=== PATIENT | female | born 1995 | race American Indian/Alaskan Native ===

== ENCOUNTER 2018-10-22 12:05 | Inpatient (IN) | payer MEDICAID ==
[2018-10-22] MEDS ORDERED: AMBIEN PO PRN ×2 (15:24→21:42)
[2018-10-22] MEDS ORDERED: SODIUM CHLORIDE FLUSH SYRINGE 10 ML IV PRN (15:24)
[2018-10-22] MEDS ORDERED: COLACE PO PRN (15:24)
[2018-10-22] MEDS ORDERED: TYLENOL PO PRN (15:24)
--- NOTE | 2018-10-22 16:25 | History and Physical Report ---
History of Present Illness Date of examination: 10/22/18 Date of admission: 10/22/18 15:27 Chief complaint: at 18 weeks with elevated BP History of present illness: Patient is a 23 year old , LMP 06/18/18, EDC 03/25/19 at 18 weeks gestation who was sent from the office for admission for elevated BP. She has a history of chronic HTN for over 5 years and has not been on any anti-HTN meds until recently. She went to the ER at [facility] earlier in this on 08/19/18 for elevated BP of 163/110. As per the ER records, patient was prescribed medication for her HTN but she "chose not to take them". She is a patient of [facility]. She was seen in the office today and her BP was 163/110, repeat was 154/112. She was sent for admission for BP control. She denies any headache or visual disturbances. Past History Social history: no significant social history - Obstetrical History Expected Date of Delivery: 03/25/19 Actual Gestation: 18 Week(s) 0 Day(s) : 2 Spontaneous Abortions: 1 Medications and Allergies Allergies Allergy/AdvReac Type Severity Reaction Status Date / Time Penicillins AdvReac Unknown Unverified 10/22/18 14:30 Active Meds: Active Medications Acetaminophen (Tylenol) 650 mg PO Q4H PRN PRN Reason: Pain MILD(1-3)/Fever >100.5/GOODEN Docusate Sodium (Colace) 100 mg PO Q12H PRN PRN Reason: Constipation Hydralazine HCl (Apresoline) 5 mg IV Q30MIN PRN PRN Reason: Hypertension Labetalol HCl (Normodyne) 300 mg PO BID MELISSA Multivitamins/Iron/Calcium ( Vitamin) 1 each PO QDAY MELISSA Sodium Chloride (Sodium Chloride Flush Syringe 10 Ml) 10 ml IV PRN PRN PRN Reason: LINE FLUSH Zolpidem Tartrate (Ambien) 5 mg PO QHS PRN PRN Reason: Sleep - Physical Exam Cardiovascular: Normal S1, Normal S2 Lungs: Positive: Clear to auscultation Vulva: both: normal Adnexa: both: normal - Obstetrical Uterine Contraction Pattern: Absent Results All other labs normal. Assessment and Plan - Patient Problems (1) 18 weeks gestation of Current Visit: Yes Status: Acute (2) HTN (hypertension) Current Visit: Yes Status: Acute Plan to address problem: Admit to antepartum floor. IV hydralazine for DBP>100. Labetolol 300 mg PO BID. CBC, chemistry. 24-hr urine for protein and Cr clearance. OB sonogram.
[2018-10-22] MEDS: APRESOLINE IV PRN (16:52)
[2018-10-22] MEDS: NORMODYNE PO SCH ×2 (16:53→21:29)
[2018-10-22] MEDS: PRENATAL VITAMIN PO SCH (16:53)
[2018-10-22] MEDS ORDERED: NORMODYNE IV ONE (17:32)
[2018-10-22] MEDS: ZOFRAN IV PRN (17:50)
[2018-10-22 18:04] LABS: Basophils # (Auto) 0.1 K/mm3 (0.0-0.1); Basophils % (Auto) 0.6 % (0.0-1.8); Eosinophils # (Auto) 0.1 K/mm3 (0.0-0.4); Eosinophils % (Auto) 0.9 % (0.0-4.3); Hematocrit 32.5 % (30.3-42.9); Hemoglobin 11.2 gm/dl (10.1-14.3); Lymphocytes # (Auto) 2.2 K/mm3 (1.2-5.4); Lymphocytes % (Auto) 24.8 % (13.4-35.0); Mean Corpuscular HGB Conc 34 % (30-34); Mean Corpuscular Volume 82 fl (79-97); Monocytes # (Auto) 0.5 K/mm3 (0.0-0.8); Monocytes % (Auto) 5.8 % (0.0-7.3); Platelet Count 187 K/mm3 (140-440); Red Blood Count 3.97 M/mm3 (3.65-5.03); Red Cell Distribution Width 17.5 % (13.2-15.2)
[2018-10-22 18:20] LABS: Alanine Aminotransferase 9 units/L (7-56); Albumin 3.6 g/dL (3.9-5); BUN/Creatinine Ratio 11; Blood Urea Nitrogen 8 mg/dL (7-17); Calcium 9.3 mg/dL (8.4-10.2); Hemolysis Index 10
[2018-10-23] MEDS: APRESOLINE IV PRN (06:52)
[2018-10-23] MEDS: ZOFRAN IV PRN (07:53)
[2018-10-23] MEDS: PRENATAL VITAMIN PO SCH (10:10)
[2018-10-23] MEDS ORDERED: NORMODYNE IV ONE ×2 (10:11→12:12)
[2018-10-23] MEDS: NORMODYNE PO SCH ×2 (10:11→21:01)
[2018-10-23] MEDS: NORVASC PO SCH (10:12)
--- NOTE | 2018-10-23 10:44 | Event Note ---
Date: 10/23/18 Patient was admitted yesterday evening for elevated BP. She has a long history of CHTN and did not start taking meds until after she became and had to go to the ER 2 months ago for symptomatic HTN. She has been on labetolol 300 mg BID. She says that she has been taking it as prescribed. On admission, her BP was in the 170's/100's. IV hydralazine was given without much improvement. IV labetolol 20 mg was ordered for diastolic BP>100. During the night, she has many diastolic reading in the 100-110's range but her nurse did not contact me. I checked the BP on [facility] at around 1 AM and BP was 150's/90's. I ordered norvasc 10 mg to be added to her standing labetolol orders. That was not given to the patient. She continued to have elevated diastolic>100 and still no doctor was made aware. I discovered the continued abnormal BP pattern this AM. Current nurse was made aware that I or any doctor media liaison officer must be contacted for any BP>160/100. At that time, BP was 184/199. Labetolol 20 mg IV push was given. After 25 minutes, BP was 177/106. Second dose of labetolol 40 mg IV was ordered. Will get medical consult today. Will continue labetolol 300 mg PO BID and norvasc 10 mg PO QD. heart by doppler Qshift.
--- NOTE | 2018-10-23 15:50 | Event Note ---
Date: 10/23/18 Patient's BP is still uncontrolled despite being on labetolol 300 mg PO BID, norvasc 10 mg PO QD. She was given several doses of IV labetolol since this AM. I spoke with hospitalist Dr. Sherwood at 3:38 PM and asked him to consult on this patient due to uncontrolled BP.
--- NOTE | 2018-10-24 06:44 | Consultation ---
History of Present Illness - Reason for Consult Consult date: 10/23/18 Requesting physician: EVELINA GUERRERO - History of Present Illness 23 YO Female with MO, HTN, Medication Noncompliance at 18 weeks gestation. Consult placed by Dr. Guerrero for Uncontrolled HTN. Pt seen and evaluated in her room. Pt acknowledges medication noncompliance with known diagnosis of HTN at age 18. Pt denies fever, chills, CP, Palpitations, Vision changes, vertigo, dizziness, NVD, Seizure, Trauma, or recent ill contacts. No reported nursing events. Pt counseled regarding medication noncompliance. Past History Past Medical History: hypertension, other (obesity) Past Surgical History: No surgical history Social history: no significant social history Family history: hypertension Medications and Allergies Allergies Allergy/AdvReac Type Severity Reaction Status Date / Time Penicillins AdvReac Unknown Unverified 10/22/18 14:30 Active Meds: Active Medications Acetaminophen (Tylenol) 650 mg PO Q4H PRN PRN Reason: Pain MILD(1-3)/Fever >100.5/GOODEN Amlodipine Besylate (Norvasc) 10 mg PO QDAY [facility] Last Admin: 10/23/18 10:12 Dose: 10 mg Documented by: Docusate Sodium (Colace) 100 mg PO Q12H PRN PRN Reason: Constipation Hydralazine HCl (Apresoline) 5 mg IV Q30MIN PRN PRN Reason: Hypertension Last Admin: 10/23/18 06:52 Dose: 5 mg Documented by: Labetalol HCl (Normodyne) 400 mg PO BID [facility] Last Admin: 10/23/18 21:01 Dose: 400 mg Documented by: Multivitamins/Iron/Calcium ( Vitamin) 1 each PO QDAY [facility] Last Admin: 10/23/18 10:10 Dose: 1 each Documented by: Ondansetron HCl (Zofran) 4 mg IV Q8H PRN PRN Reason: Nausea And Vomiting Last Admin: 10/23/18 07:53 Dose: 4 mg Documented by: Sodium Chloride (Sodium Chloride Flush Syringe 10 Ml) 10 ml IV PRN PRN PRN Reason: LINE FLUSH Zolpidem Tartrate (Ambien) 5 mg PO QHS PRN PRN Reason: Sleep Last Admin: 10/22/18 21:51 Dose: 5 mg Documented by: Review of Systems Constitutional: no weight loss, no fever, no chills Ears, nose, mouth and throat: no ear pain, no tinnitis, no nose pain, no sinus pressure Cardiovascular: no chest pain, no palpitations, no edema, no lightheadedness Respiratory: no cough, no excessive sputum, no pleurisy Gastrointestinal: no nausea, no diarrhea, no change in bowel habits Genitourinary Female: no dysmenorrhea, no flank pain, no dysuria Menstruation: no premenarcheal, no ammenorrhea, no period normal Rectal: no pain, no incontinence, no bleeding Musculoskeletal: no neck stiffness, no shooting arm pain, no low back pain, no leg numbness/tingling Integumentary: no rash, no redness, no jaundice Neurological: no head injury, no paralysis, no parathesias, no seizures Psychiatric: no anxiety, no sleep disturbances, no hypersomnia Endocrine: no cold intolerance, no polyphagia, no polydipsia, no nocturia Hematologic/Lymphatic: no easy bruising, no easy bleeding Allergic/Immunologic: no urticaria, no allergic rhinitis, no wheezing Exam - Constitutional Vitals: Temp Pulse Resp BP Pulse Ox 98.4 F 81 20 154/96 100 10/24/18 04:10 10/24/18 04:10 10/24/18 04:10 10/24/18 04:10 10/23/18 15:28 General appearance: Present: no acute distress, obese - EENT Eyes: Present: PERRL ENT: hearing intact, clear oral mucosa - Neck Neck: Present: supple, normal ROM - Respiratory Respiratory effort: normal Respiratory: bilateral: CTA - Cardiovascular Heart Sounds: Present: S1 & S2. Absent: rub, click - Extremities Extremities: pulses symmetrical, No edema Peripheral Pulses: within normal limits - Abdominal General gastrointestinal: Present: soft, non-tender, non-distended, normal bowel sounds Female genitourinary: Present: normal - Integumentary Integumentary: Present: clear, warm, dry - Musculoskeletal Musculoskeletal: gait normal, strength equal bilaterally - Psychiatric Psychiatric: appropriate mood/affect, intact judgment & insight - Neurologic Neurologic: CNII-XII intact, moves all extremities Results - Labs CBC & Chem 7: 10/22/18 17:47 10/22/18 17:47 Labs: Abnormal lab results 10/22/18 Range/Units 16:19 Ur Total Protein 24 Hr 440.00 H (2-200) mg/dL Urine Total Protein 40 H (5-11.8) mg/dL Assessment and Plan - Patient Problems (1) HTN (hypertension) Current Visit: Yes Status: Acute Qualifiers: Hypertension type: essential hypertension Qualified Code(s): I10 - Essential (primary) hypertension Plan to address problem: Monitor bp q shift, continue current therapy, maintain blood pressure log BID upon discharge,
[2018-10-24] MEDS: PRENATAL VITAMIN PO SCH (09:53)
[2018-10-24] MEDS: NORMODYNE PO SCH (09:53)
[2018-10-24] MEDS: NORVASC PO SCH (09:54)
--- NOTE | 2018-10-24 11:55 | Progress Note ---
Assessment and Plan Assessment and plan: 23 YO Female with MO, HTN, Medication Noncompliance at 18 weeks gestation. Consult placed by Dr. Morrissey for Uncontrolled HTN. Pt seen and evaluated in her room. Pt acknowledges medication noncompliance with known diagnosis of HTN at age 18. Pt denies fever, chills, CP, Palpitations, Vision changes, vertigo, dizziness, NVD, Seizure, Trauma, or recent ill contacts. No reported nursing events. Pt counseled regarding medication noncompliance. Hypertension -Continue current management with labetalol which has been adjusted to 400 mg by mouth twice a day - Continue Norvasc - While at home his blood pressures increased recommend the labatelol could be adjusted to 300 mg 3 times a day -Patient is medically stable from hospitalist standpoint for discharge. I've advised patient to keep a diary of blood pressure 3 times a day for the next week and then twice a day the week after that. Discussed this with her primary care physician and her PROPERTY MANAGEMENT INTERN. Will follow with you while in house Counselling provided to the patient including the gradual managmenet approach that was adopted. she verbalized understanding. 15MINS IUP -Management per PROPERTY MANAGEMENT INTERN. History Interval history: Patient is seen today for: Hypertension patient is 18 weeks . Seen and examined at bedside; 24hour events reviewed; nursing staff ; no adverse overnight events reported to me; Denies any chest pain, nausea, vomiting, diarrhea No fever noted blood pressure controlled Hospitalist Physical - Physical exam Narrative exam: VITAL SIGNS: Reviewed. GENERAL: The patient appeared well nourished and normally developed. Vital signs as documented. HEAD: No signs of head trauma. EYES: Pupils are equal. Extraocular motions intact. EARS: Hearing grossly intact. MOUTH: Oropharynx is normal. NECK: No adenopathy, no JVD. CHEST: Chest with clear breath sounds bilaterally. No wheezes, rales, or r honchi. CARDIAC: Regular rate and rhythm. S1 and S2, without murmurs, gallops, or r ubs. VASCULAR: No Edema. Peripheral pulses normal and equal in all extremities. ABDOMEN: Soft, without detectable tenderness. Gravidus No rebound or guarding, and no masses palpated. Bowel Sounds normal. MUSCULOSKELETAL: Good range of motion of all major joints. Extremities without clubbing, cyanosis or edema. NEUROLOGIC EXAM: Alert and oriented x 3. No focal sensory or strength deficits. Speech normal. Follows commands. PSYCHIATRIC: Mood normal. SKIN: No rash or lesions. - Constitutional Vitals: Temp Pulse Resp BP Pulse Ox 97.9 F 77 20 154/97 100 10/24/18 08:46 10/24/18 09:54 10/24/18 08:46 10/24/18 09:54 10/24/18 08:46 General appearance: Present: no acute distress, obese Results - Labs CBC & Chem 7: 10/22/18 17:47 10/22/18 17:47 Labs: Laboratory Last Values WBC 8.9 K/mm3 (4.5-11.0) 10/22/18 17:47 RBC 3.97 M/mm3 (3.65-5.03) 10/22/18 17:47 Hgb 11.2 gm/dl (10.1-14.3) 10/22/18 17:47 Hct 32.5 % (30.3-42.9) 10/22/18 17:47 MCV 82 fl (79-97) 10/22/18 17:47 MCH 28 pg (28-32) 10/22/18 17:47 MCHC 34 % (30-34) 10/22/18 17:47 RDW 17.5 % (13.2-15.2) H 10/22/18 17:47 Plt Count 187 K/mm3 (140-440) 10/22/18 17:47 Lymph % (Auto) 24.8 % (13.4-35.0) 10/22/18 17:47 [place] % (Auto) 5.8 % (0.0-7.3) 10/22/18 17:47 Eos % (Auto) 0.9 % (0.0-4.3) 10/22/18 17:47 Baso % (Auto) 0.6 % (0.0-1.8) 10/22/18 17:47 Lymph # 2.2 K/mm3 (1.2-5.4) 10/22/18 17:47 [place] # 0.5 K/mm3 (0.0-0.8) 10/22/18 17:47 Eos # 0.1 K/mm3 (0.0-0.4) 10/22/18 17:47 Baso # 0.1 K/mm3 (0.0-0.1) 10/22/18 17:47 Seg Neutrophils % 67.9 % (40.0-70.0) 10/22/18 17:47 Seg Neutrophils # 6.0 K/mm3 (1.8-7.7) 10/22/18 17:47 Sodium 136 mmol/L (137-145) L 10/22/18 17:47 Potassium 3.9 mmol/L (3.6-5.0) 10/22/18 17:47 Chloride 103.9 mmol/L (98-107) 10/22/18 17:47 Carbon Dioxide 20 mmol/L (22-30) L 10/22/18 17:47 Anion Gap 16 mmol/L 10/22/18 17:47 BUN 8 mg/dL (7-17) 10/22/18 17:47 Creatinine 0.7 mg/dL (0.7-1.2) 10/22/18 17:47 Estimated GFR > 60 ml/min 10/22/18 17:47 BUN/Creatinine Ratio 11 % 10/22/18 17:47 Glucose 79 mg/dL (65-100) 10/22/18 17:47 Calcium 9.3 mg/dL (8.4-10.2) 10/22/18 17:47 Total Bilirubin 0.20 mg/dL (0.1-1.2) 10/22/18 17:47 AST 11 units/L (5-40) 10/22/18 17:47 ALT 9 units/L (7-56) 10/22/18 17:47 Alkaline Phosphatase 47 units/L (35-129) 10/22/18 17:47 Total Protein 6.8 g/dL (6.3-8.2) 10/22/18 17:47 Albumin 3.6 g/dL (3.9-5) L 10/22/18 17:47 Albumin/Globulin Ratio 1.1 % 10/22/18 17:47 Urine Total Volume 1100 ml 10/22/18 16:19 Ur Total Protein 24 Hr 440.00 mg/dL (2-200) H 10/22/18 16:19 Urine Total Protein 40 mg/dL (5-11.8) H 10/22/18 16:19 Blood Type O POSITIVE 10/22/18 17:47 Antibody Screen Negative 10/22/18 17:47
[2018-10-24 13:19] VITALS: BP 157/97
--- NOTE | 2018-10-24 15:11 | Event Note ---
LEFT AGAINST MEDICAL ADVICE Went to patient's room ~255pm on 10/24/2018 after reviewing her blood pressures and chart. I was notified by nursing staff that the patient had left the hosp ital. The patient was previously made aware by nursing staff that my plans were to see her before making final decision on discharge, however, she decided to leave before being evaluated. The patient left without blood pressure prescriptions. She signed an against medical advice form prior to leaving.
== END 2018-10-24 14:55 | disposition left against medical advice (07) | DRG 781 ==
LOC: 3A 12:05 → UNDOADMOB 12:05 → OB 14:05 → OBSVTOIN 10-23 14:05
PROVIDERS: ADMIT Obstetrics & Gynecology; ATTEND Obstetrics & Gynecology
DX: O10.012 Pre-existing essential hypertension complicating pregnancy, second trimester (principal); Z53.21 Procedure and treatment not carried out due to patient leaving prior to being seen by health care provider; Z3A.18 18 weeks gestation of pregnancy; Z88.0 Allergy status to penicillin; Z82.49 Family history of ischemic heart disease and other diseases of the circulatory system; E66.9 Obesity, unspecified; O99.212 Obesity complicating pregnancy, second trimester
CPT/HCPCS: 36415; 80053; 84156; 85025; 86850; 86900; 86901; G0378; G0379; J0360; J2405